=== PATIENT | female | born 1990 | race Two or more races ===

== ENCOUNTER 2023-10-19 13:23 | Outpatient (CLI) | payer OTHER, SELFPAY ==
[2023-10-19 15:45] LABS: Basophils Percent Auto 0.2 % (0.2-1.2); Eosinophils Absolute Auto 0.1 K/mm3 (0-0.3); Eosinophils Percent Auto 0.9 % (0-4.4); Hematocrit 39.3 % (37.0-47.0); Hemoglobin 13.1 g/dL (12.0-15.0); Immature Granulocyte Absolute 0.04 K/mm3 (0.00-0.031); Immature Granulocyte Percent A 0.5 % (0-0.5); Lymphocytes Absolute Auto 2.31 K/mm3 (0.9-3.2); Lymphocytes Percent Auto 28.6 % (18.3-44.2); Mean Corpuscular HGB Conc 33.3 g/dl (32-36); Mean Corpuscular Hemoglobin 28.7 pg (26-34); Mean Corpuscular Volume 86.2 fl (80-100); Mean Platelet Volume 9.6 fl (7.4-10.4); Monocytes Absolute Auto 0.4 K/mm3 (0.1-0.6); Monocytes Percent Auto 4.5 % (2.6-8.5); Neutrophils Absolute Auto 5.3 K/mm3 (1.3-6.7); Neutrophils Percent Auto 65.3 % (45.5-73.1); Platelet Count Result 333 k/mm3 (150-375); Red Blood Count 4.56 M/mm3 (4.2-5.4); Red Cell Distribution Width 12.5 % (11.5-14.5); White Blood Count 8.1 K/mm3 (4.5-10.0)
[2023-10-19 18:00] LABS: Glucose 1 Hour PP 50gm Dose 123 mg/dL
[2023-10-19 18:05] LABS: Hepatitis B Surface Antigen Negative (Negative); Rubella IgG Antibody 20.3 IU/ML
[2023-10-19 18:12] LABS: HIV 1/2 Ab P24 Ag Result Negative (Negative)
[2023-10-19 19:05] LABS: Hemoglobin A1C 5.7 % (<5.7)
[2023-10-20 10:49] LABS: Rapid Plasma Reagin Non-Reactive (NonReactive)
== END 2023-10-19 13:24 | disposition home or self-care (01) ==
LOC: ANHGOSHLAB 13:25
PROVIDERS: Visit Provider Obstetrics & Gynecology
DX: N91.2 Amenorrhea, unspecified (principal); E66.9 Obesity, unspecified
CPT/HCPCS: 36415; 82947; 83036; 84443; 84702; 85025; 86592; 86644; 86703; 86747; 86762; 86787; 86850; 86900; 86901; 87086; 87088; 87340; G0432

== ENCOUNTER 2023-10-26 12:52 | Outpatient (CLI) | payer OTHER, SELFPAY | END 2023-10-26 12:53 | disposition home or self-care (01) | LOC: ANHGOSHLAB 12:55 | PROVIDERS: Visit Provider Obstetrics & Gynecology | DX: R30.9 Painful micturition, unspecified (principal) | CPT/HCPCS: 87086; 87088 ==

== ENCOUNTER 2023-10-26 12:59 | Outpatient (CLI) | payer OTHER, SELFPAY ==
--- NOTE | ~2023-10-26 | US_ITS ---
EXAMINATION: US OB <= 14 weeks fetus DATE: 10/26/2023 13:19 INDICATION: Threatened during first trimester TECHNIQUE: Real-time pelvic ultrasound utilizing both a transvaginal and transabdominal probe was pe rformed. The interpreting radiologist was not present for the study. COMPARISON: None. FINDINGS: The uterus measures 9.9 x 9.6 x 5.1 cm. There is an intrauterine gestational sac. A yolk sac and fet al pole are identified. The crown rump length measures 1.8 cm, which correlates with an estimated ges tational age of 8 weeks and 2 days. heart motion is identified measuring 183 beats per minute ( bpm) by M-mode Doppler.12 x 9 x 8 mm hypoechoic subchorionic hematoma along the inferior margin of th e gestational sac. The bilateral ovaries are not visualized. There is no free fluid in the pelvis. IMPRESSION: 1. Single living fetus with heart rate of 183 bpm. 2. Gestational age by ultrasound of 8 weeks 2 day(s) +/- 5 day(s) with ultrasound estimated date of delivery (JOVON) of 06/04/2024. Reviewed, dictated and finalized at location A. IMPRESSION: 1. Single living fetus with heart rate of 183 bpm. 2. Gestational age by ultrasound of 8 weeks 2 day(s) +/- 5 day(s) with ultraso und estimated date of delivery ([facility]OVON) of 06/04/2024.
== END 2023-10-26 13:00 | disposition home or self-care (01) ==
PROVIDERS: PCP Obstetrics & Gynecology; Visit Provider Obstetrics & Gynecology
DX: O20.0 Threatened abortion (principal); Z3A.08 8 weeks gestation of pregnancy
CPT/HCPCS: 76801

== ENCOUNTER 2024-12-20 12:17 | Emergency (ER) | payer OTHER, SELFPAY ==
[2024-12-20 12:32] VITALS: BP 126/78; PULSE 81; RESP 16; TEMP 36.6; O2SAT 99
--- NOTE | 2024-12-20 13:11 | ED.GENADULT ---
HPI - General Adult General Chief complaint: Unspecified Stated complaint: High Blood Pressure Time Seen by Provider: 12/20/24 12:45 Source: patient and RN notes reviewed Mode of arrival: ambulatory Limitations: no limitations History of Present Illness HPI narrative: Patient presents today complaining of fluid shifting sensation in her bilateral ears with head movement since this morning. She checked her BP at home, which was 131/100. She is 6 mos , exclusively and states she has not slept much for the last couple of days. Also states she started smoking again over the last month. Patient takes Claritin and Flonase daily for seasonal allergies. Also reports history of anxiety and T&A. Related Data Home Medications ?Medication ?Instructions ?Recorded ?Confirmed ?Last Taken ?Type loratadine 10 mg disintegrating 10 mg PO DAILY 02/07/23 11/10/23 Unknown History tablet vitamins 30 30 mg iron-10 cap PO 02/07/23 11/10/23 Unknown History mg iron-folic acid 1 mg-om3 capsule fluticasone propionate 50 intranasal 10/12/23 11/10/23 Unknown History mcg/actuation nasal spray,suspension omeprazole 20 mg capsule,delayed mg PO 10/12/23 11/10/23 Unknown History release sertraline 25 mg tablet mg 12/20/24 Unknown History Allergies Allergy/AdvReac Type Severity Reaction Status Date / Time No Known Allergies Allergy Verified 11/10/23 14:18 [facility] Past Medical History Medical History Liver hemangioma small growths being monitored ADHD GERD (gastroesophageal reflux disease) High cholesterol Vitamin D deficiency Anxiety Surgical History Surgical History Hx of tonsillectomy Hx of cholecystectomy Family History Family History Grandparent Cerebrovascular accident Diabetes mellitus Other Heart disease High cholesterol Hypertension Liver cancer Social History Social History Smoking status: Current every day smoker Tobacco type: cigarettes Alcohol intake: never Substance use: former Substance use type: marijuana Do You Feel Safe in your Home?: Yes Lack of Transportation: No Lack of Food: Never True Current Housing: I Have Housing Concerned About Future Housing: No Difficulty Paying Gas/Electric Bills: No Difficulty Paying for Meds: No Currently Unemployed: No Education: Master's Degree or Higher Difficulty w/ Childcare or Family Care: No Living arrangements: with family Occupation/Education: occupation Gender identity (if verbalized by the patient): Female Sexual Orientation (if Verbalized by the Patient): Straight or Heterosexual Comments At time of signature, I have reviewed and agree with nursing past medical, surgical, social and family history unless otherwise noted. Please see nursing chart for further information. There is no relevant family history pertinent to the presenting complaint Exam Narrative: GENERAL: Well-appearing, well-nourished, and in no acute distress. HEAD: Normocephalic, atraumatic. EYES: EOMI. PERRL. No redness or drainage. Conjunctivae normal. ENT: Mucous membranes pink and moist. Nares clear. No rhinorrhea. Bilateral middle ear effusions without evidence of bacterial infection. Throat normal. Uvula midline. NECK: Normal AROM. Supple. No lymphadenopathy. CHEST: No respiratory distress. Clear to auscultation. HEART: Regular rate and rhythm. No murmur appreciated. Normal peripheral pulses. EXTREMITIES: Normal range of motion. No edema. SKIN: Warm, dry, no rash. Capillary refill normal. Normal skin turgor. NEURO: No focal deficits. Alert and oriented x3. Gait steady. PSYCH: Normal affect. No signs of depression or anxiety. Course Course Level of Care: Express Care Visit Vital Signs Vital signs: Vital Signs Temperature 97.8 F 12/20/24 12:32 Pulse Rate 81 12/20/24 12:32 Respiratory Rate 16 12/20/24 12:32 Blood Pressure 126/78 12/20/24 12:32 Pulse Oximetry 99 12/20/24 12:32 Temperature 97.8 F 12/20/24 12:32 Pulse Rate 80 12/20/24 13:34 Respiratory Rate 16 12/20/24 12:32 Blood Pressure 114/72 12/20/24 13:34 Pulse Oximetry 99 12/20/24 12:32 Reviewed Medical Decision Making MDM Narrative Medical decision making narrative: Patient presents today complaining of fluid shifting sensation in her bilateral ears with head movement since this morning. She checked her BP at home, which was 131/100. She is 6 mos , exclusively and states she has not slept much for the last couple of days. Also states she started smoking again over the last month. Patient takes Claritin and Flonase daily for seasonal allergies. BP upon arrival 126/78 and 114/72 before discharge. Upon exam, patient has bilateral middle ear effusions. Dose of meclizine given to evaluate efficacy for the fluid shiftingsensation she is having with head movement. Recommend continuing antihistamine or meclizine and Flonase. Reassured that symptoms will typically self resolve. Reassured patient that blood pressure is down significantly from when she checked it at home and that this is an acceptable level at this time. Recommend follow-up with PCP if symptoms persist. Patient agrees with plan. Vital signs stable. Differential Diagnosis Differential Diagnosis: URI, seasonal allergies, vertigo, serous effusion, AOM, AOE Vital Signs Vital Signs: Vital Signs Temperature 97.8 F 12/20/24 12:32 Pulse Rate 81 12/20/24 12:32 Respiratory Rate 16 12/20/24 12:32 Blood Pressure 126/78 12/20/24 12:32 Pulse Oximetry 99 12/20/24 12:32 Temperature 97.8 F 12/20/24 12:32 Pulse Rate 80 12/20/24 13:34 Respiratory Rate 16 12/20/24 12:32 Blood Pressure 114/72 12/20/24 13:34 Pulse Oximetry 99 12/20/24 12:32 Discharge Plan Discharge Clinical Impression: Acute serous otitis media of both ears Qualifiers: Recurrence: non-recurrent Qualified Code(s): H65.03 - Acute serous otitis media, bilateral Patient Disposition: Home Condition: Stable Instructions: Fluid In The Ear (Serous Otitis Media) (ED) Additional Instructions: You have fluid behind both eardrums with no evidence of infection. This is likely the cause the sensation of fluid shifting. You have been given a dose of meclizine to see if this will help. You can purchase this [id number] if you find that it is helpful. Follow-up with your PCP with any additional concerns. Patient Language: [place] Prescriptions: No Action sertraline 25 mg tablet loratadine 10 mg tablet,disintegrating 10 mg PO DAILY PNV [id number] 30 mg iron-10 mg iron-1 mg capsule PO omeprazole 20 mg capsule,delayed release(DR/EC) PO fluticasone propionate 50 mcg/actuation spray,suspension intranasal Follow-up/Referrals: PHYSICIAN,[facility] [Primary Care Provider, Internal Medicine]
[2024-12-20] MEDS: MECLIZINE HCL 25 MG TABLET PO (13:13)
[2024-12-20 13:34] VITALS: BP 114/72; PULSE 80
== END 2024-12-20 13:34 | disposition home or self-care (01) ==
PROVIDERS: Emergency Provider Nurse Practitioner
DX: H65.03 Acute serous otitis media, bilateral (principal); F17.210 Nicotine dependence, cigarettes, uncomplicated; E78.00 Pure hypercholesterolemia, unspecified; K21.9 Gastro-esophageal reflux disease without esophagitis; F41.9 Anxiety disorder, unspecified
CPT/HCPCS: 99213; A9270; G0463